=== PATIENT | male | born 1990 | race Caucasian/White ===

== ENCOUNTER 2019-07-14 07:45 | Emergency (ER) | payer OTHER ==
[~2019-07-14] VITALS: Ht 165.1 cm; Wt 56.8 kg
[2019-07-14 07:58] VITALS: Ht 165.1 cm; Wt 56.8 kg
[2019-07-14] MEDS ORDERED: ORAL ANALGESIC9 GM TOPICAL (08:15)
[2019-07-14] MEDS ORDERED: IBUPROFEN800 MG PO (08:15)
[2019-07-14] MEDS ORDERED: ACETAMINOPHEN500 M1 PO (08:15)
[2019-07-14] MEDS ORDERED: CYCLOBENZAPRINE10 MG PO (08:15)
[2019-07-14] MEDS ORDERED: PENICILLIN V P500 MG PO (08:15)
[2019-07-14 09:01] VITALS: BP 130/94
== END 2019-07-14 09:02 | disposition home or self-care (01) ==
LOC: D.ER 07:45
DX: K08.89 Other specified disorders of teeth and supporting structures (principal)

== ENCOUNTER 2020-03-03 03:25 | Emergency (ER) | payer OTHER ==
[~2020-03-03] VITALS: Ht 165.1 cm; Wt 59.1 kg
[~2020-03-03 03:25] MED LIST: ACETAMINOPHEN500 M1 PO; CYCLOBENZAPRINE10 MG PO; IBUPROFEN800 MG PO; ORAL ANALGESIC9 GM TOPICAL; PENICILLIN V P500 MG PO
[2020-03-03 03:31] VITALS: Ht 165.1 cm; Wt 59.1 kg
[2020-03-03] MEDS ORDERED: KLONOPIN1 MG PO (03:34)
[2020-03-03] MEDS ORDERED: CYMBALTA20 MG (03:34)
[2020-03-03] MEDS ORDERED: HYDROCODON-ACE1 EAC7 PO (03:53)
[2020-03-03] MEDS ORDERED: CYCLOBENZAPRINE10 MG PO (03:53)
[2020-03-03 04:20] VITALS: BP 112/74
== END 2020-03-03 04:20 | disposition home or self-care (01) ==
LOC: D.ER 03:25
DX: M54.2 Cervicalgia (principal); G89.29 Other chronic pain